=== PATIENT | male | born 1990 | race Caucasian/White ===

== ENCOUNTER 2024-11-21 12:19 | Emergency (ER) | payer BC ==
[~2024-11-21] VITALS: Ht 185.4 cm; Wt 113.2 kg
[2024-11-21 12:21] VITALS: BP 137/89; PULSE 86; RESP 15; TEMP 98.5; O2SAT 100
[2024-11-21] MEDS ORDERED: CLIN-26 PO (12:54)
[2024-11-21] MEDS ORDERED: SULF-261 PO (12:54)
[2024-11-21] MEDS ORDERED: CLOT15CR29 TP (12:57)
[2024-11-21] MEDS: CLOTRIMAZOLE 1% 15 GM CREAM TP ONE (13:04)
[2024-11-21] MEDS: SULFAMETHOX/TRIMETH DS 800-160 MG/TABLET PO ONE (13:04)
== END 2024-11-21 14:19 | disposition home or self-care (01) ==
LOC: EMS 12:22
DX: L73.9 Follicular disorder, unspecified (principal); B35.9 Dermatophytosis, unspecified; L03.116 Cellulitis of left lower limb; F17.210 Nicotine dependence, cigarettes, uncomplicated; F12.90 Cannabis use, unspecified, uncomplicated; Z88.0 Allergy status to penicillin
CPT/HCPCS: 99283